=== PATIENT | female | born 1990 | race Caucasian/White ===

== ENCOUNTER 2017-05-15 10:10 | Emergency (ER) | payer OTHER ==
[~2017-05-15] VITALS: Ht 162.6 cm; Wt 63.5 kg
[2017-05-15 11:44] VITALS: BP 118/72
== END 2017-05-15 11:44 | disposition home or self-care (01) ==
LOC: ED 10:10
DX: K42.9 Umbilical hernia without obstruction or gangrene (principal)

== ENCOUNTER 2018-05-21 21:35 | Emergency (ER) | payer OTHER ==
[~2018-05-21] VITALS: Ht 165.1 cm; Wt 73.5 kg
[2018-05-21 21:42] VITALS: Ht 165.1 cm; Wt 73.5 kg
[2018-05-22 01:11] VITALS: BP 118/79
== END 2018-05-22 01:41 | disposition home or self-care (01) ==
LOC: ED 21:35
DX: G44.209 Tension-type headache, unspecified, not intractable (principal); R11.0 Nausea; H53.8 Other visual disturbances

== ENCOUNTER 2018-10-13 10:37 | Emergency (ER) | payer OTHER ==
[~2018-10-13] VITALS: Ht 162.6 cm; Wt 76.2 kg
[2018-10-13 10:55] VITALS: Ht 162.6 cm; Wt 76.2 kg
[2018-10-13 11:44] VITALS: BP 119/84
== END 2018-10-13 11:44 | disposition home or self-care (01) ==
LOC: ED 10:37
DX: G51.0 Bell's palsy (principal)

== ENCOUNTER 2019-03-15 11:49 | Emergency (ER) | payer OTHER ==
[~2019-03-15] VITALS: Ht 170.2 cm; Wt 73.9 kg
[2019-03-15 12:02] VITALS: Ht 170.2 cm; Wt 73.9 kg
[2019-03-15 17:08] VITALS: BP 125/89
== END 2019-03-15 17:08 | disposition home or self-care (01) ==
LOC: ED 11:49
DX: J20.9 Acute bronchitis, unspecified (principal); F17.210 Nicotine dependence, cigarettes, uncomplicated
CPT/HCPCS: 99406

== ENCOUNTER 2020-01-22 11:16 | Emergency (ER) | payer OTHER ==
[~2020-01-22] VITALS: Ht 165.1 cm; Wt 63.5 kg
[2020-01-22 11:39] VITALS: Ht 165.1 cm; Wt 63.5 kg
[2020-01-22 13:53] VITALS: BP 123/80
== END 2020-01-22 13:53 | disposition home or self-care (01) ==
LOC: ED 11:16
DX: R07.0 Pain in throat (principal); M54.2 Cervicalgia; Z98.890 Other specified postprocedural states